=== PATIENT | male | born 1940 ===

== ENCOUNTER 2021-09-04 07:40 | Day surgery (SDC) | payer OTHER | END 2021-09-04 13:30 | disposition home or self-care (01) | LOC: AMB-ENDOS 07:40 | PROVIDERS: ATTEND Colon & Rectal Surgery | DX: D12.0 Benign neoplasm of cecum (principal); D12.3 Benign neoplasm of transverse colon; I10 Essential (primary) hypertension; E11.9 Type 2 diabetes mellitus without complications; E03.9 Hypothyroidism, unspecified ==